=== PATIENT | female | born 1940 | race Caucasian/White ===

== ENCOUNTER 2017-06-20 09:53 | Emergency (ER) | payer MEDICARE, OTHER ==
--- NOTE | 2017-06-20 11:58 | ED Physician Documentation ---
PD HPI NECK PAIN - Stated complaint Stated Complaint: UPPER BACK PX/TINGLING - Chief complaint Chief Complaint: Back Pain - History obtained from History obtained from: Patient - History of Present Illness Timing - onset: How many days ago (10) Timing - duration: Days (10) Timing - details: Gradual onset, Still present, Waxing and waning Location: Mid, Other (bilateral) Quality: Pain, Sharp Associated symptoms: Numbness. No: Fever, Weakness, Incontinent of urine, Unable to urinate, Hematuria, Incontinent of stool Improves with: Rest, Ice, Position Worsened by: Movement, Twisting Similar symptoms before: Has not had sx before Recently seen: Other (The patient is being seen for low back pain.) - Additional information Additional information: 76 y/o female with neck pain and numbness to her hands for the past 10 days had a sleepless night last night because of neck pain shooting between her shoulder blades and numbness to her hands. She has had improvement in her symptoms with ice to the neck and she is not currently having numbness or weakness. She has pain when she moves her neck back. She has not had trauma to the area. Review of Systems Constitutional: denies: Fever, Chills, Myalgias Eyes: denies: Decreased vision Ears: denies: Ear pain Nose: denies: Rhinorrhea / runny nose, Congestion Throat: denies: Sore throat Cardiac: denies: Chest pain / pressure, Palpitations Respiratory: denies: Dyspnea, Cough GI: denies: Abdominal Pain, Nausea, Vomiting : denies: Dysuria, Frequency Skin: denies: Rash Musculoskeletal: reports: Neck pain. denies: Back pain, Extremity pain Neurologic: reports: Numbness. denies: Generalized weakness, Focal weakness PD PAST MEDICAL HISTORY - Past Medical History Past Medical History: Yes Musculoskeletal: Scoliosis - Past Surgical History Past Surgical History: Yes HEENT: Tonsil/Adenoidectomy - Present Medications Home Medications: Ambulatory Orders Medication Instructions Recorded Confirmed DULoxetine [Cymbalta] 20 mg PO DAILY 06/20/17 06/20/17 Dexamethasone [Decadron] 8 mg PO ONCE #2 tablet 06/20/17 Omeprazole [PriLOSEC] 20 mg PO DAILY 06/20/17 06/20/17 diazePAM [Diazepam] 5 mg PO DAILY PRN 06/20/17 06/20/17 - Allergies Allergies/Adverse Reactions: Allergies Allergy/AdvReac Type Severity Reaction Status Date / Time etodolac Allergy Rash Verified 06/20/17 10:12 scopolamine Allergy Anaphylaxis Verified 06/20/17 10:12 - Social History Does the pt smoke?: No Smoking Status: Never smoker Does the pt drink ETOH?: Yes Does the pt have substance abuse?: No - Immunizations Immunizations are current?: Yes PD ED PE NORMAL - Vitals Vital signs reviewed: Yes (hypertensive ) - General General: No acute distress, Well developed/nourished - HEENT HEENT: Atraumatic, PERRL, EOMI - Neck Neck: Supple, no meningeal sign, No bony TTP, Other (There is tenderness mild to the trapezius bilaterally extending to the cervical spine and across the shoulders. ) - Respiratory Respiratory: No respiratory distress - Derm Derm: Normal color, Warm and dry, No rash - Extremities Extremities: No deformity, No edema - Neuro Neuro: No motor deficit, No sensory deficit Eye Opening: Spontaneous Motor: Obeys Commands Verbal: Oriented GCS Score: 15 - Psych Psych: Normal mood, Normal affect Results - Vitals Vitals: Vital Signs - 24 hr 06/20/17 06/20/17 06/20/17 10:07 12:00 12:08 Temperature 35.8 C L 37.0 C Heart Rate 35 L 63 Respiratory 18 16 Rate Blood Pressure 138/85 H 151/86 H 132/82 H O2 Saturation 99 100 Oxygen O2 Source Room air PD MEDICAL DECISION MAKING - ED course Complexity details: considered differential, d/w patient ED course: 76-year-old female with a prior history of chronic low back pain has developed some neck pain and symptoms consistent with a cervical radiculopathy with some numbness to the upper extremities bilaterally. I have offered the patient some dexamethasone to take today and she has refused. She would like to take a prescription home should she decide to change her mind. She has some hesitation about taking the steroid. She does have a primary care doctor who she can follow-up with. She does change her mind and is given the dexamethasone here. Departure - Departure Disposition: 01 Home, Self Care Clinical Impression: Cervical radiculopathy Condition: Stable Instructions: ED Cervical Radiculopathy Follow-Up: Neha Roth MD [Primary Care Provider] - Prescriptions: Dexamethasone [Decadron] 8 mg PO ONCE #2 tablet Discharge Date/Time: 06/20/17 12:13
[2017-06-20] MEDS ORDERED: DEXAMETHASONE 10 MG/ML VIAL PO STA (12:07)
[2017-06-20 12:09] VITALS: BP 132/82
[2017-06-20] MEDS ORDERED: DEXAMETHASONE 10 MG/ML VIAL ONE (12:15)
== END 2017-06-20 12:13 | disposition home or self-care (01) ==
LOC: ED 09:53
DX: M54.12 Radiculopathy, cervical region (principal)
CPT/HCPCS: 99283

== ENCOUNTER 2020-07-23 11:47 | Outpatient (CLI) | payer MEDICARE, OTHER ==
[2020-07-23 15:06] LABS: % IRON SATURATION 21 % (20-50); IRON 80 ug/dL (28-170); TOTAL IRON BINDING CAPACITY 385 ug/dL (250-450); TRANSFERRIN 275 mg/dL (192-382)
== END 2020-07-23 11:48 | disposition home or self-care (01) ==
LOC: LAB.S 11:47
PROVIDERS: ATTEND Internal Medicine
DX: E03.9 Hypothyroidism, unspecified (principal); G25.81 Restless legs syndrome
CPT/HCPCS: 36415; 83540; 84443; 84466

== ENCOUNTER 2023-12-28 14:21 | Emergency (ER) | payer MEDICARE, OTHER ==
[2023-12-28 14:38] VITALS: BP 125/71; O2SAT 97
[2023-12-28 14:50] LABS: BASOPHILS % (AUTO) 0.4 %; EOSINOPHILS # (AUTO) 0.1 10^3/uL (0.0-0.7); EOSINOPHILS % (AUTO) 1.9 %; HCT - HEMATOCRIT 39.5 % (37.0-47.0); HGB - HEMOGLOBIN 12.3 g/dL (12.0-16.0); LYMPHOCYTES # (AUTO) 1.3 10^3/uL (1.5-3.5); LYMPHOCYTES % (AUTO) 19.4 %; MEAN CORPUSCULAR HEMOGLOBIN 30.6 pg (27.0-31.0); MEAN CORPUSCULAR HGB CONC 31.1 g/dL (32.0-36.0); MEAN CORPUSCULAR VOLUME 98.3 fL (81.0-99.0); MEAN PLATELET VOLUME 9.8 fL (7.9-10.8); MONOCYTES # (AUTO) 0.5 10^3/uL (0.0-1.0); MONOCYTES % (AUTO) 7.8 %; NEUTROPHILS # (AUTO) 4.8 10^3/uL (1.5-6.6); NEUTROPHILS % (AUTO) 70.4 %; PLT - PLATELET COUNT 300 10^3/uL (130-450); RED BLOOD COUNT 4.02 10^6/uL (4.20-5.40); RED CELL DISTRIBUTION WIDTH 12.9 % (12.0-15.0); WHITE BLOOD COUNT 6.9 x10^3/uL (4.8-10.8)
[2023-12-28 15:07] LABS: ALBUMIN 4.3 g/dL (3.2-5.5); ALBUMIN/GLOBULIN RATIO 1.3 (1.0-2.2); BILIRUBIN,TOTAL 0.4 mg/dL (0.2-1.0); CALCIUM 9.8 mg/dL (8.5-10.3); CREATININE 0.6 mg/dL (0.6-1.3); POTASSIUM 3.8 mmol/L (3.5-4.5); TOTAL PROTEIN 7.5 g/dL (6.4-8.9)
== END 2023-12-28 16:30 | disposition left against medical advice (07) ==
LOC: ED 14:21
DX: Z53.21 Procedure and treatment not carried out due to patient leaving prior to being seen by health care provider (principal)
CPT/HCPCS: 36415; 80053; 83690; 85025